=== PATIENT | female | born 1940 | race Caucasian/White ===

== ENCOUNTER 2022-02-16 14:07 | Inpatient (IN) | payer MEDICARE, MEDICAID ==
[~2022-02-16] VITALS: Ht 167.6 cm; Wt 67.6 kg
[2022-02-16 15:36] LABS: BASOPHILS % 0.2 % (0.0-2.0); EOSINOPHILS % 0.5 % (0.0-5.0); HEMATOCRIT. 36.7 % (36.0-48.0); HEMOGLOBIN. 11.9 g/dL (12.0-16.0); LYMPHOCYTES % 15.6 % (20.0-50.0); MEAN PLATELET VOLUME 7.4 fl (7.4-10.4); MONOCYTES % 7.2 % (2.0-8.0); NEUTROPHILS % 76.5 % (40.0-76.0); PLATELET 166 x1000/uL (130-400); RED BLOOD CELL COUNT 4.58 mill/uL (4.2-5.4); RED CELL DISTRIBUTION WIDTH 17.1 % (11.6-14.6)
[2022-02-16 15:47] LABS: CHLORIDE 104 mEq/L (98-107)
[2022-02-16] MEDS: OXYCODONE HCL/ACETAMINOPHEN 5/325MG TABLET PO PRN (22:34)
[2022-02-17] MEDS: OXYCODONE HCL/ACETAMINOPHEN 5/325MG TABLET PO PRN (04:35)
[2022-02-17] MEDS ORDERED: ONDANSETRON HCL 4MG/2ML INJ IV PRN (08:00)
[2022-02-17] MEDS ORDERED: ACETAMINOPHEN 325MG TABLET PO PRN (08:00)
[2022-02-17] MEDS ORDERED: CEFTRIAXONE 1 G PREMIX 50 ML IV SCH (08:00)
[2022-02-17] MEDS ORDERED: DIPHENHYDRAMINE 50MG/ML VIAL IV PRN (08:00)
[2022-02-17] MEDS ORDERED: CEFTRIAXONE 1,000 MG in DEXTROSE 5% WATER 50 ML IV SCH (08:00)
[2022-02-17] MEDS ORDERED: CLONIDINE 0.1MG TABLET PO PRN (08:00)
[2022-02-17] MEDS ORDERED: NA PHOS,M-B/NA PHOS,DI-BA ENEMA 118ML PR PRN (08:00)
[2022-02-17] MEDS ORDERED: MAGNESIUM/ALUMINUM HYDROXIDE/SIMETHICONE 30ML UDC PO PRN (08:00)
[2022-02-17] MEDS ORDERED: LORAZEPAM 0.5MG TABLET PO PRN (08:00)
[2022-02-17] MEDS ORDERED: GUAIFENESIN 200MG/10ML SUGAR FREE UDC PO PRN (08:00)
[2022-02-17] MEDS ORDERED: ACETAMINOPHEN 650MG SUPP PR PRN (08:00)
[2022-02-17] MEDS ORDERED: DOCUSATE SODIUM 100MG CAPSULE PO PRN (08:00)
[2022-02-17] MEDS ORDERED: IPRATROPIUM/ALBUTEROL 0.5-3(2.5)MG/3ML NEB NEB PRN (08:00)
[2022-02-17] MEDS ORDERED: NALOXONE HCL 0.4MG/ML VIAL IV PRN (08:15)
[2022-02-17 10:09] LABS: BASOPHILS % 0.2 % (0.0-2.0); EOSINOPHILS % 0.7 % (0.0-5.0); HEMATOCRIT. 38.5 % (36.0-48.0); HEMOGLOBIN. 12.7 g/dL (12.0-16.0); LYMPHOCYTES % 15.1 % (20.0-50.0); MEAN CORPUSCULAR HEMOGLOBIN 26.2 pg (28.0-32.0); MEAN CORPUSCULAR VOLUME 79.8 fL (81.0-99.0); MEAN PLATELET VOLUME 7.3 fl (7.4-10.4); MONOCYTES % 5.7 % (2.0-8.0); NEUTROPHILS % 78.3 % (40.0-76.0); PLATELET 155 x1000/uL (130-400); RED BLOOD CELL COUNT 4.82 mill/uL (4.2-5.4); RED CELL DISTRIBUTION WIDTH 17.8 % (11.6-14.6)
[2022-02-17 10:14] LABS: CHLORIDE 103 mEq/L (98-107)
[2022-02-17 10:23] LABS: PROTHROMBIN TIME 11.1 sec (9.6-11.0)
[2022-02-17] MEDS: HYDROCODONE/ACETAMINOPHEN 5/325MG TABLET PO PRN ×3 (10:37→22:36)
[2022-02-17 12:00] VITALS: BP 129/65
[2022-02-17] MEDS ORDERED: ATOR40TA70 MT (12:00)
[2022-02-17] MEDS ORDERED: SERT-112 PO (12:00)
[2022-02-17] MEDS ORDERED: MELA5TAB3 MT (12:00)
[2022-02-17] MEDS ORDERED: CLON1TAB PO (12:00)
[2022-02-17] MEDS ORDERED: FAMO20TA8 MT (12:00)
[2022-02-17] MEDS ORDERED: PREG75CA MT (12:00)
[2022-02-17 17:59] VITALS: BP 129/65
[2022-02-17] MEDS ORDERED: FAMOTIDINE 20MG TABLET PO SCH (21:00)
[2022-02-17] MEDS: DIPHENHYDRAMINE 50MG/ML VIAL IV PRN (22:48)
[2022-02-18] MEDS: HYDROCODONE/ACETAMINOPHEN 5/325MG TABLET PO PRN ×2 (05:14→15:14)
[2022-02-18 12:00] VITALS: BP 139/77
[2022-02-18 18:18] VITALS: BP 122/43
[2022-02-18] MEDS: DIPHENHYDRAMINE 50MG/ML VIAL IV PRN (18:53)
[2022-02-18] MEDS ORDERED: HYDROCORTISONE 1% OINT 28.35GM TOP SCH (21:00)
== END 2022-02-18 19:05 | DRG 535 ==
LOC: ER 14:07 → MICUSO 19:59 → EDBEDREQ 20:00 → EDBEDREQTM 20:00 → 6EST 02-17 09:59
PROVIDERS: ADMIT Internal Medicine; ATTEND Internal Medicine
DX: S32.592A Other specified fracture of left pubis, initial encounter for closed fracture (principal); G93.41 Metabolic encephalopathy; J98.11 Atelectasis; S52.591G Other fractures of lower end of right radius, subsequent encounter for closed fracture with delayed healing; S51.812A Laceration without foreign body of left forearm, initial encounter; D64.9 Anemia, unspecified; E78.5 Hyperlipidemia, unspecified; F03.90 Unspecified dementia, unspecified severity, without behavioral disturbance, psychotic disturbance, mood disturbance, and anxiety; F32.A Depression, unspecified; I10 Essential (primary) hypertension; I25.10 Atherosclerotic heart disease of native coronary artery without angina pectoris; I25.2 Old myocardial infarction; K21.9 Gastro-esophageal reflux disease without esophagitis; L89.159 Pressure ulcer of sacral region, unspecified stage; M19.90 Unspecified osteoarthritis, unspecified site; R73.9 Hyperglycemia, unspecified; E78.00 Pure hypercholesterolemia, unspecified; R09.02 Hypoxemia; Z96.649 Presence of unspecified artificial hip joint; W01.0XXA Fall on same level from slipping, tripping and stumbling without subsequent striking against object, initial encounter; Y93.89 Activity, other specified; Y92.89 Other specified places as the place of occurrence of the external cause; Y99.8 Other external cause status
CPT/HCPCS: 36415; 71045; 72192; 73110; 73502; 80048; 82962; 85025; 86850; 86900; 93005; 93306; 99285; J0696; J1200; J7060